=== PATIENT | female | born 1985 | race Caucasian/White ===

== ENCOUNTER 2016-12-06 11:52 | Emergency (ER) | payer OTHER ==
[~2016-12-06 11:52] MED LIST: BENADRYL25 MG PO; BUPROPION XL300 MG PO; BUSPAR5 MG PO; COLACE100 MG PO; GEODON40 MG PO; OMEPRAZOLE40 M1 PO; PRILOSEC40 MG PO; RANITIDINE HCL150 MG PO; TOPIRAMATE100 MG PO; TOPIRAMATE200 MG PO; WELLBUTRIN SR150 MG PO; ZIPRASIDONE HCL40 MG PO
[2016-12-06 12:17] LABS: EOSINOPHIL COUNT 0.1 K/uL (0-0.3); HEMATOCRIT 43.6 % (36.0-46.0); IMMATURE GRANULOCYTE (%) 0.5 % (0.0-0.7); INSTRUMENT ABS NEUTROPHIL CT 3.3 K/uL; LYMPHOCYTE COUNT 2.6 K/uL (1.0-2.8); MCH 31.9 PG (29.0-34.0); MCHC 31.7 G/DL (30.0-36.0); MCV 100.9 FL (83-99); MEAN PLAT.VOLUME 10.7 uM^3 (9.5-12.4); MONOCYTE (%) 6.4 % (3-12); MONOCYTE COUNT 0.4 K/uL (0-0.8); NEUTROPHIL (%) 50.1 % (45-76); NEUTROPHIL COUNT 3.3 K/uL (1.8-6.4); PLATELET COUNT 257 K/uL (156-360); RBC DIS.WIDTH-CV 12.3 % (11.8-14.6); RBC DIS.WIDTH-SD 46.6 % (39-53); RED BLOOD COUNT 4.32 M/uL (3.80-5.20); WHITE BLOOD COUNT 6.5 K/uL (4.1-10.2)
[2016-12-06 12:31] LABS: AMYLASE 18 IU/L (1-118); CHLORIDE 109 mEq/L (99-109); SODIUM 141 mEq/L (136-147)
[2016-12-06 12:33] LABS: GLUCOSE 231 mg/dL (70-99)
[2016-12-06 12:34] LABS: ANION GAP 9 MEQ/L (2-14)
[2016-12-06 12:36] LABS: SERUM ETHYL ALCOHOL < 10 mg/dL
[2016-12-06 12:37] LABS: GFR ESTIMATE (CALCULATED) > 59 mL/min/
[2016-12-06 12:38] LABS: UREA NITROGEN (BUN) 8 mg/dL (9-23)
[2016-12-06 12:40] LABS: LIPASE 4 U/L (1.0-51.0)
[2016-12-06 12:46] LABS: QUANTITATIVE HCG < 4.0 MIU/ML
[2016-12-06 13:28] LABS: ADD MIUA? YES; BILIRUBIN NEGATIVE; BLOOD NEGATIVE; COLOR YELLOW ((YELLOW)); GLUCOSE (STRIP) NEGATIVE; KETONES NEGATIVE; LEUKOCYTES NEGATIVE; NITRITE NEGATIVE; PROTEIN (STRIP) NEGATIVE; SPECIFIC GRAVITY 1.018 (1.000-1.030); UROBILINOGEN 0.2 MG/DL (0.2-1.0)
[2016-12-06 13:41] LABS: COCAINE NEGATIVE (150 ng/mL); PHENCYCLIDINE NEGATIVE (25 ng/mL); THC CANNABINOIDS NEGATIVE (50 ng/mL)
[2016-12-06 13:42] LABS: AMPHETAMINE NEGATIVE (500 ng/mL); BARBITURATES NEGATIVE (200 ng/mL); BENZODIAZEPINES NEGATIVE (150 ng/mL); INTERNAL CONTROLS VALID? YES; METHADONE NEGATIVE (200 ng/mL); METHAMPHETAMINE NEGATIVE (500 ng/mL); OPIATES (MORPHINE) NEGATIVE (100 ng/mL); OXYCODONE NEGATIVE (100 ng/mL); PROPOXYPHENE NEGATIVE (300 ng/mL); TRICYCLIC ANTIDEPRESSANTS NEGATIVE (300 ng/mL)
[2016-12-06 14:12] LABS: RED BLOOD CELLS NONE SEEN /HPF (0-5)
[2016-12-06 14:13] LABS: BACTERIA 1+ /HPF; CASTS NONE SEEN /LPF; CRYSTALS PRESENT; EPITHELIAL CELLS RARE /HPF; MUCUS NONE SEEN /LPF; UCUL ADDED? NO; WHITE BLOOD CELLS 0-5 /HPF (0-5)
[2016-12-06 14:14] LABS: AMORPHOUS URATES CRYSTALS 2+; OTHER BUDDING YEAST 1+
== END 2016-12-06 14:48 | disposition home or self-care (01) ==
LOC: TRA 11:52
PROVIDERS: Emergency Medicine
DX: T14.8 Other injury of unspecified body region (principal); V49.40XA Driver injured in collision with unspecified motor vehicles in traffic accident, initial encounter; F11.10 Opioid abuse, uncomplicated
CPT/HCPCS: 70450; 71260; 72125; 72129; 72132; 74177; 80048; 81003; 82150; 83690; 84702; 85025; 86900; 86901; 99281; 99285; G0480

== ENCOUNTER 2016-12-08 07:37 | Inpatient (IN) | payer OTHER ==
[~2016-12-08] VITALS: Ht 162.6 cm; Wt 65.8 kg
[2016-12-08] VITALS (10 sets, daily range): BP systolic 96–125; BP diastolic 59–83
[2016-12-08 07:48] LABS: BASE EXCESS -13.1 mEq/L (-3 to +3); BICARBONATE 16.2 mEq/L (22-26); CARBOXY HGB 0.9 % (0-5); METHEMOGLOBIN 0.7 % (0-1.5); PCO2 51 mm Hg (35-45); PO2 319 mm Hg (80-100)
[2016-12-08 07:49] LABS: COMMENTS - BLOOD GASES A+C+; DEVICE NRBM; FI02 100 %; O2 FLOW 15 L/MIN; SITE RR; pH 7.11 (7.35-7.45)
[2016-12-08 08:03] LABS: HEMATOCRIT 38.2 % (36.0-46.0); MCHC 30.9 G/DL (30.0-36.0); MCV 103.5 FL (83-99); MEAN PLAT.VOLUME 10.8 uM^3 (9.5-12.4); PLATELET COUNT 257 K/uL (156-360); RBC DIS.WIDTH-CV 12.3 % (11.8-14.6); RBC DIS.WIDTH-SD 47.1 % (39-53); RED BLOOD COUNT 3.69 M/uL (3.80-5.20); WHITE BLOOD COUNT 10.2 K/uL (4.1-10.2)
[2016-12-08 08:15] LABS: ADD MIUA? YES; BILIRUBIN NEGATIVE; BLOOD NEGATIVE; COLOR YELLOW ((YELLOW)); GLUCOSE (STRIP) >=500; KETONES NEGATIVE; LEUKOCYTES NEGATIVE; NITRITE NEGATIVE; PROTEIN (STRIP) 100; SPECIFIC GRAVITY 1.008 (1.000-1.030); UROBILINOGEN 0.2 MG/DL (0.2-1.0)
[2016-12-08 08:16] LABS: CHLORIDE 105 mEq/L (99-109); SODIUM 138 mEq/L (136-147)
[2016-12-08 08:17] LABS: POTASSIUM 2.9 mEq/L (3.7-5.4)
[2016-12-08 08:20] LABS: ANION GAP 17 MEQ/L (2-14); TOTAL BILIRUBIN 0.3 mg/dL (0.0-1.0)
[2016-12-08 08:22] LABS: BACTERIA 1+ /HPF; EPITHELIAL CELLS RARE /HPF; HYALINE CASTS 0-5 /LPF; MUCUS 1+ /LPF; UCUL ADDED? NO
[2016-12-08 08:22] LABS: ALKALINE PHOSPHATASE 105 IU/L (3-129); GFR ESTIMATE (CALCULATED) 55 mL/min/
[2016-12-08 08:23] LABS: UREA NITROGEN (BUN) 9 mg/dL (9-23)
[2016-12-08 08:24] LABS: GLUCOSE 394 mg/dL (70-99)
[2016-12-08 08:25] LABS: ADD MEDTOX COMMENT Y; AMPHETAMINE NEGATIVE (500 ng/mL); BARBITURATES NEGATIVE (200 ng/mL); BENZODIAZEPINES NEGATIVE (150 ng/mL); COCAINE NEGATIVE (150 ng/mL); INTERNAL CONTROLS VALID? YES; METHADONE NEGATIVE (200 ng/mL); METHAMPHETAMINE NEGATIVE (500 ng/mL); OPIATES (MORPHINE) PRESUMPTIVE POSITIVE (100 ng/mL); OXYCODONE NEGATIVE (100 ng/mL); PHENCYCLIDINE NEGATIVE (25 ng/mL); PROPOXYPHENE NEGATIVE (300 ng/mL); THC CANNABINOIDS NEGATIVE (50 ng/mL); TRICYCLIC ANTIDEPRESSANTS NEGATIVE (300 ng/mL)
[2016-12-08] MEDS ORDERED: OMEPRAZOLE40 M1 PO (15:10)
[2016-12-08] MEDS ORDERED: ZANTAC150 MG PO (15:10)
[2016-12-08] MEDS ORDERED: TOPAMAX50 MG PO (15:10)
[2016-12-08] MEDS ORDERED: LITHOBID300 MG PO (15:11)
[2016-12-08] MEDS ORDERED: LATUDA60 MG PO (15:14)
[2016-12-08] MEDS ORDERED: REVIA50 MG PO (15:15)
[2016-12-08 17:57] LABS: BASE EXCESS -3.5 mEq/L (-3 to +3); BICARBONATE 20.3 mEq/L (22-26); CARBOXY HGB 1.1 % (0-5); COMMENTS - BLOOD GASES C+ANA; DEVICE 980 PB; METHEMOGLOBIN 1.3 % (0-1.5); PCO2 32 mm Hg (35-45); PO2 122 mm Hg (80-100); SITE ALINE; pH 7.41 (7.35-7.45)
[2016-12-08 17:58] LABS: FI02 30 %; MECHANICAL RATE 14 resp/min; MODE AC; PEEP 5 CM/H20; TIDAL VOLUME 450 ML; TOTAL RESP RATE 14 resp/min
[2016-12-08 21:22] LABS: QUANTITATIVE HCG < 4.0 MIU/ML
[2016-12-08 21:57] LABS: ALKALINE PHOSPHATASE 91 IU/L (3-129); ANION GAP 9 MEQ/L (2-14); CHLORIDE 137 MEQ/L (99-109); SAMPLE HEMOLYSIS CHECK 0; SAMPLE ICTERIC CHECK 0; SAMPLE LIPEMIA CHECK 0; TOTAL BILIRUBIN 0.3 MG/DL (0.0-1.0); UREA NITROGEN (BUN) 6 mg/dL (9-23)
[2016-12-08 21:58] LABS: GFR ESTIMATE (CALCULATED) > 59 mL/min/; GLUCOSE 119 mg/dL (70-99); SODIUM 165 MEQ/L (136-147)
[2016-12-08 21:59] LABS: POTASSIUM 3.6 MEQ/L (3.7-5.4)
[2016-12-08 23:50] LABS: METH RESISTANT S AUREUS PCR NEGATIVE (NEGATIVE)
[2016-12-08 23:54] LABS: PROBE CHECK PASS; SPECIMEN PROCESSING CONTROL PASS
[2016-12-09] VITALS (15 sets, daily range): BP systolic 82–109; BP diastolic 43–78
[2016-12-09 00:20] LABS: BASE EXCESS -3.7 mEq/L (-3 to +3); BICARBONATE 20.4 mEq/L (22-26); CARBOXY HGB 1.1 % (0-5); COMMENTS - BLOOD GASES C+; DEVICE VENT; FI02 30 %; MECHANICAL RATE 12 resp/min; METHEMOGLOBIN 1.5 % (0-1.5); MODE AC; PCO2 33 mm Hg (35-45); PEEP 5 CM/H20; PO2 159 mm Hg (80-100); SITE A-LINE; TIDAL VOLUME 450 ML; TOTAL RESP RATE 12 resp/min
[2016-12-09 01:30] LABS: EOSINOPHIL (%) 0 % (0-5); HEMATOCRIT 37.1 % (36.0-46.0); IMMATURE GRANULOCYTE (%) 0.6 % (0.0-0.7); IMMATURE GRANULOCYTE COUNT 0.1 K/uL; INSTRUMENT ABS NEUTROPHIL CT 9.4 K/uL; LYMPHOCYTE COUNT 0.8 K/uL (1.0-2.8); MCH 31.4 PG (29.0-34.0); MCHC 31.8 G/DL (30.0-36.0); MCV 98.7 FL (83-99); MEAN PLAT.VOLUME 10.5 uM^3 (9.5-12.4); MONOCYTE COUNT 0.8 K/uL (0-0.8); NEUTROPHIL (%) 85.3 % (45-76); NEUTROPHIL COUNT 9.4 K/uL (1.8-6.4); PLATELET COUNT 226 K/uL (156-360); RBC DIS.WIDTH-CV 12.5 % (11.8-14.6); RBC DIS.WIDTH-SD 45.1 % (39-53); RED BLOOD COUNT 3.76 M/uL (3.80-5.20)
[2016-12-09 01:44] LABS: POTASSIUM 3.2 mEq/L (3.7-5.4); SODIUM 160 mEq/L (136-147)
[2016-12-09 01:46] LABS: GLUCOSE 144 mg/dL (70-99)
[2016-12-09 01:47] LABS: CHLORIDE 136 mEq/L (99-109)
[2016-12-09 01:48] LABS: ANION GAP 4 MEQ/L (2-14)
[2016-12-09 01:50] LABS: GFR ESTIMATE (CALCULATED) > 59 mL/min/
[2016-12-09 01:51] LABS: UREA NITROGEN (BUN) 7 mg/dL (9-23)
[2016-12-09 01:59] LABS: TROP-I INTERPRETATION INDETERMINATE; TROPONIN-I 0.32 ng/mL (0.0-0.30)
[2016-12-09 02:48] LABS: CHLORIDE 136 mEq/L (99-109); POTASSIUM 3.1 mEq/L (3.7-5.4); SODIUM 159 mEq/L (136-147)
[2016-12-09 02:50] LABS: GLUCOSE 192 mg/dL (70-99)
[2016-12-09 02:51] LABS: ANION GAP 4 MEQ/L (2-14)
[2016-12-09 02:54] LABS: GFR ESTIMATE (CALCULATED) > 59 mL/min/
[2016-12-09 02:55] LABS: UREA NITROGEN (BUN) 8 mg/dL (9-23)
[2016-12-09 03:49] LABS: CHLORIDE 134 mEq/L (99-109)
[2016-12-09 03:50] LABS: POTASSIUM 3.1 mEq/L (3.7-5.4); SODIUM 158 mEq/L (136-147)
[2016-12-09 03:51] LABS: GLUCOSE 241 mg/dL (70-99)
[2016-12-09 03:53] LABS: ANION GAP 5 MEQ/L (2-14)
[2016-12-09 03:55] LABS: GFR ESTIMATE (CALCULATED) > 59 mL/min/
[2016-12-09 03:56] LABS: UREA NITROGEN (BUN) 8 mg/dL (9-23)
[2016-12-09 05:39] LABS: EOSINOPHIL (%) 0 % (0-5); HEMATOCRIT 35.3 % (36.0-46.0); IMMATURE GRANULOCYTE (%) 0.5 % (0.0-0.7); IMMATURE GRANULOCYTE COUNT 0.1 K/uL; INSTRUMENT ABS NEUTROPHIL CT 9.3 K/uL; LYMPHOCYTE COUNT 0.6 K/uL (1.0-2.8); MCH 31.8 PG (29.0-34.0); MCV 99.4 FL (83-99); MEAN PLAT.VOLUME 10.9 uM^3 (9.5-12.4); MONOCYTE (%) 3.6 % (3-12); MONOCYTE COUNT 0.4 K/uL (0-0.8); NEUTROPHIL (%) 90.2 % (45-76); NEUTROPHIL COUNT 9.3 K/uL (1.8-6.4); PLATELET COUNT 221 K/uL (156-360); RBC DIS.WIDTH-CV 12.4 % (11.8-14.6); RBC DIS.WIDTH-SD 45.3 % (39-53); RED BLOOD COUNT 3.55 M/uL (3.80-5.20); WHITE BLOOD COUNT 10.3 K/uL (4.1-10.2)
[2016-12-09 05:39] LABS: BASE EXCESS -4.9 mEq/L (-3 to +3); BICARBONATE 19.7 mEq/L (22-26); COMMENTS - BLOOD GASES C+; DEVICE VENTILATOR; FI02 30 %; MECHANICAL RATE 12 resp/min; METHEMOGLOBIN 0.5 % (0-1.5); MODE A/C; PCO2 34 mm Hg (35-45); PO2 161 mm Hg (80-100); TIDAL VOLUME 450 ML; TOTAL RESP RATE 12 resp/min; pH 7.37 (7.35-7.45)
[2016-12-09 05:40] LABS: PEEP 5 CM/H20
[2016-12-09 05:50] LABS: TROP-I INTERPRETATION NEGATIVE; TROPONIN-I 0.27 ng/mL (0.0-0.30)
[2016-12-09 06:24] LABS: ALKALINE PHOSPHATASE 78 IU/L (3-129); ANION GAP 4 MEQ/L (2-14); CHLORIDE 131 MEQ/L (99-109); GFR ESTIMATE (CALCULATED) > 59 mL/min/; GLUCOSE 289 mg/dL (70-99); MAGNESIUM 1.7 mg/dl (1.3-2.7); SAMPLE HEMOLYSIS CHECK 0; SAMPLE ICTERIC CHECK 0; SAMPLE LIPEMIA CHECK 0; SODIUM 157 MEQ/L (136-147); TOTAL BILIRUBIN 0.3 MG/DL (0.0-1.0); UREA NITROGEN (BUN) 7 mg/dL (9-23)
[2016-12-09 06:27] LABS: POTASSIUM 3.9 MEQ/L (3.7-5.4)
[2016-12-09 09:17] LABS: ANION GAP 8 MEQ/L (2-14); CHLORIDE 130 MEQ/L (99-109); MAGNESIUM 1.6 mg/dl (1.3-2.7); SAMPLE HEMOLYSIS CHECK 0; SAMPLE ICTERIC CHECK 0; SAMPLE LIPEMIA CHECK 0; SODIUM 157 MEQ/L (136-147)
[2016-12-09 09:22] LABS: GFR ESTIMATE (CALCULATED) > 59 mL/min/; GLUCOSE 214 mg/dL (70-99); UREA NITROGEN (BUN) 7 mg/dL (9-23)
[2016-12-09 09:26] LABS: POTASSIUM 3.1 MEQ/L (3.7-5.4)
[2016-12-09 12:29] LABS: EOSINOPHIL (%) 0.3 % (0-5); HEMATOCRIT 33.3 % (36.0-46.0); IMMATURE GRANULOCYTE (%) 0.4 % (0.0-0.7); IMMATURE GRANULOCYTE COUNT 0.1 K/uL; INSTRUMENT ABS NEUTROPHIL CT 10.1 K/uL; LYMPHOCYTE COUNT 1.1 K/uL (1.0-2.8); MCH 31.6 PG (29.0-34.0); MCHC 31.2 G/DL (30.0-36.0); MCV 101.2 FL (83-99); MEAN PLAT.VOLUME 10.6 uM^3 (9.5-12.4); MONOCYTE (%) 5.4 % (3-12); MONOCYTE COUNT 0.6 K/uL (0-0.8); NEUTROPHIL (%) 84.6 % (45-76); NEUTROPHIL COUNT 10.1 K/uL (1.8-6.4); PLATELET COUNT 223 K/uL (156-360); RBC DIS.WIDTH-CV 12.7 % (11.8-14.6); RBC DIS.WIDTH-SD 47.6 % (39-53); RED BLOOD COUNT 3.29 M/uL (3.80-5.20); WHITE BLOOD COUNT 11.9 K/uL (4.1-10.2)
[2016-12-09 12:42] LABS: BASE EXCESS -3.8 mEq/L (-3 to +3); BICARBONATE 22.2 mEq/L (22-26); CARBOXY HGB 1.3 % (0-5); PCO2 43 mm Hg (35-45); PO2 130 mm Hg (80-100); pH 7.32 (7.35-7.45)
[2016-12-09 12:43] LABS: COMMENTS - BLOOD GASES A+C+; DEVICE 980 PB; FI02 30 %; MECHANICAL RATE 15 resp/min; MODE AC; PEEP 5 CM/H20; SITE LR; TIDAL VOLUME 360 ML; TOTAL RESP RATE 15 resp/min
[2016-12-09 12:55] LABS: ANION GAP 5 MEQ/L (2-14); CHLORIDE 127 MEQ/L (99-109); GFR ESTIMATE (CALCULATED) > 59 mL/min/; GLUCOSE 150 mg/dL (70-99); MAGNESIUM 1.5 mg/dl (1.3-2.7); POTASSIUM 2.9 MEQ/L (3.7-5.4); SAMPLE HEMOLYSIS CHECK 0; SAMPLE ICTERIC CHECK 0; SAMPLE LIPEMIA CHECK 0; SODIUM 156 MEQ/L (136-147); UREA NITROGEN (BUN) 7 mg/dL (9-23)
[2016-12-09 13:03] LABS: TROP-I INTERPRETATION NEGATIVE
[2016-12-09 13:46] LABS: POINT-OF-CARE METER ID UU13113731
[2016-12-09 18:02] LABS: EOSINOPHIL (%) 0.9 % (0-5); EOSINOPHIL COUNT 0.1 K/uL (0-0.3); HEMATOCRIT 28.2 % (36.0-46.0); IMMATURE GRANULOCYTE (%) 0.2 % (0.0-0.7); INSTRUMENT ABS NEUTROPHIL CT 6.9 K/uL; LYMPHOCYTE COUNT 1.2 K/uL (1.0-2.8); MCHC 31.6 G/DL (30.0-36.0); MCV 101.4 FL (83-99); MEAN PLAT.VOLUME 11.1 uM^3 (9.5-12.4); MONOCYTE (%) 3.3 % (3-12); MONOCYTE COUNT 0.3 K/uL (0-0.8); NEUTROPHIL (%) 81.3 % (45-76); NEUTROPHIL COUNT 6.9 K/uL (1.8-6.4); PLATELET COUNT 200 K/uL (156-360); RBC DIS.WIDTH-SD 48.6 % (39-53); RED BLOOD COUNT 2.78 M/uL (3.80-5.20); WHITE BLOOD COUNT 8.5 K/uL (4.1-10.2)
[2016-12-09 18:22] LABS: TROP-I INTERPRETATION NEGATIVE; TROPONIN-I 0.12 ng/mL (0.0-0.30)
[2016-12-09 19:17] LABS: ANION GAP 9 MEQ/L (2-14); CHLORIDE 124 MEQ/L (99-109); GFR ESTIMATE (CALCULATED) > 59 mL/min/; GLUCOSE 118 mg/dL (70-99); SAMPLE HEMOLYSIS CHECK 0; SAMPLE ICTERIC CHECK 0; SAMPLE LIPEMIA CHECK 0; SODIUM 152 MEQ/L (136-147); UREA NITROGEN (BUN) 7 mg/dL (9-23)
[2016-12-09 19:20] LABS: MAGNESIUM 1.2 mg/dl (1.3-2.7); POTASSIUM 3.9 MEQ/L (3.7-5.4)
[2016-12-09 19:38] LABS: BASE EXCESS -2.9 mEq/L (-3 to +3); BICARBONATE 22.7 mEq/L (22-26); CARBOXY HGB 1.9 % (0-5); METHEMOGLOBIN 1.4 % (0-1.5); PCO2 42 mm Hg (35-45); pH 7.34 (7.35-7.45)
[2016-12-09 19:39] LABS: COMMENTS - BLOOD GASES C+; DEVICE 840; FI02 30 %; MECHANICAL RATE 15 resp/min; MODE AC; PEEP 5 CM/H20; PO2 69 mm Hg (80-100); SITE RT PEDAL; TIDAL VOLUME 360 ML; TOTAL RESP RATE 15 resp/min
[2016-12-10] VITALS (8 sets, daily range): BP systolic 104–139; BP diastolic 65–101
[2016-12-10 00:02] LABS: HEMATOCRIT 29.4 % (36.0-46.0); MCH 31.5 PG (29.0-34.0); MCV 101.7 FL (83-99); MEAN PLAT.VOLUME 10.3 uM^3 (9.5-12.4); PLATELET COUNT 181 K/uL (156-360); RBC DIS.WIDTH-CV 13.2 % (11.8-14.6); RBC DIS.WIDTH-SD 49.8 % (39-53); RED BLOOD COUNT 2.89 M/uL (3.80-5.20); WHITE BLOOD COUNT 8.5 K/uL (4.1-10.2)
[2016-12-10 00:20] LABS: CHLORIDE 129 mEq/L (99-109); POTASSIUM 3.7 mEq/L (3.7-5.4); SODIUM 154 mEq/L (136-147)
[2016-12-10 00:21] LABS: MAGNESIUM 1.9 mg/dL (1.3-2.7)
[2016-12-10 00:23] LABS: GLUCOSE 107 mg/dL (70-99)
[2016-12-10 00:24] LABS: ANION GAP 4 MEQ/L (2-14)
[2016-12-10 00:26] LABS: GFR ESTIMATE (CALCULATED) > 59 mL/min/
[2016-12-10 00:27] LABS: UREA NITROGEN (BUN) 5 mg/dL (9-23)
[2016-12-10 00:32] LABS: TROP-I INTERPRETATION NEGATIVE
[2016-12-10 00:57] LABS: EOSINOPHIL (%) 0.8 % (0-5); EOSINOPHIL COUNT 0.1 K/uL (0-0.3); IMMATURE GRANULOCYTE (%) 0.4 % (0.0-0.7); LYMPHOCYTE COUNT 1.1 K/uL (1.0-2.8); MONOCYTE (%) 2.9 % (3-12); MONOCYTE COUNT 0.3 K/uL (0-0.8); NEUTROPHIL (%) 82.7 % (45-76)
[2016-12-10 05:01] LABS: BASE EXCESS -5.2 mEq/L (-3 to +3); BICARBONATE 21.6 mEq/L (22-26); CARBOXY HGB 1.1 % (0-5); METHEMOGLOBIN 1.4 % (0-1.5); PO2 73 mm Hg (80-100)
[2016-12-10 05:02] LABS: COMMENTS - BLOOD GASES C+; DEVICE 980; FI02 70 %; MECHANICAL RATE 15 resp/min; MODE AC; PCO2 47 mm Hg (35-45); PEEP 10 CM/H20; SITE A-LINE; TIDAL VOLUME 360 ML; TOTAL RESP RATE 15 resp/min; pH 7.27 (7.35-7.45)
[2016-12-10 05:32] LABS: HEMATOCRIT 30.9 % (36.0-46.0); MCH 32.7 PG (29.0-34.0); MCHC 31.4 G/DL (30.0-36.0); MEAN PLAT.VOLUME 11.2 uM^3 (9.5-12.4); PLATELET COUNT 196 K/uL (156-360); RBC DIS.WIDTH-CV 13.4 % (11.8-14.6); RBC DIS.WIDTH-SD 51.5 % (39-53); RED BLOOD COUNT 2.97 M/uL (3.80-5.20)
[2016-12-10 05:48] LABS: TROP-I INTERPRETATION NEGATIVE; TROPONIN-I 0.12 ng/mL (0.0-0.30)
[2016-12-10 05:59] LABS: ANION GAP 4 MEQ/L (2-14); CHLORIDE 128 MEQ/L (99-109); GFR ESTIMATE (CALCULATED) > 59 mL/min/; GLUCOSE 158 mg/dL (70-99); POTASSIUM 3.5 MEQ/L (3.7-5.4); SAMPLE HEMOLYSIS CHECK 0; SAMPLE ICTERIC CHECK 0; SAMPLE LIPEMIA CHECK 0; SODIUM 153 MEQ/L (136-147); UREA NITROGEN (BUN) 6 mg/dL (9-23)
[2016-12-10 06:04] LABS: MAGNESIUM 1.8 mg/dl (1.3-2.7)
[2016-12-10 06:13] LABS: EOSINOPHIL (%) 0.4 % (0-5); HEMATOLOGY COMMENT 1 SN; IMMATURE GRANULOCYTE (%) 0.3 % (0.0-0.7); LYMPHOCYTE COUNT 0.4 K/uL (1.0-2.8); MONOCYTE (%) 4.6 % (3-12); MONOCYTE COUNT 0.5 K/uL (0-0.8); NEUTROPHIL (%) 90.8 % (45-76)
[2016-12-10 17:38] LABS: BASE EXCESS -4.7 mEq/L (-3 to +3); BICARBONATE 20.4 mEq/L (22-26); CARBOXY HGB 1.2 % (0-5); METHEMOGLOBIN 1.5 % (0-1.5); pH 7.35 (7.35-7.45)
[2016-12-10 17:39] LABS: COMMENTS - BLOOD GASES C+ANA; DEVICE 980 PB; FI02 50 %; MECHANICAL RATE 18 resp/min; MODE AC; PCO2 37 mm Hg (35-45); PEEP 8 CM/H20; PO2 110 mm Hg (80-100); SITE ALINE; TIDAL VOLUME 360 ML; TOTAL RESP RATE 18 resp/min
[2016-12-10 19:30] LABS: ALKALINE PHOSPHATASE 63 IU/L (3-129); ANION GAP 4 MEQ/L (2-14); CHLORIDE 129 MEQ/L (99-109); GFR ESTIMATE (CALCULATED) > 59 mL/min/; GLUCOSE 200 mg/dL (70-99); MAGNESIUM 1.6 mg/dl (1.3-2.7); POTASSIUM 3.5 MEQ/L (3.7-5.4); SAMPLE HEMOLYSIS CHECK 0; SAMPLE ICTERIC CHECK 0; SAMPLE LIPEMIA CHECK 0; SODIUM 153 MEQ/L (136-147); UREA NITROGEN (BUN) 9 mg/dL (9-23)
[2016-12-10 19:32] LABS: TOTAL BILIRUBIN 0.2 MG/DL (0.0-1.0)
[2016-12-10 19:39] LABS: AMPHETAMINES QUANT VALUE 0 NG/ML; BARBITUATES QUANT VALUE 0 NG/ML; BENZODIAZEPINES QUANT VALUE 0 NG/ML; BENZODIAZEPINES, URINE SCREEN Negative (200 ng/mL); MARIJUANA QUANT VALUE 0 NG/ML; OPIATES QUANTITATIVE VALUE 0 NG/ML; PHENCYCLIDINE QUANT VALUE 0 NG/ML
[2016-12-10 21:12] LABS: BASE EXCESS -4.1 mEq/L (-3 to +3); BICARBONATE 20.9 mEq/L (22-26); CARBOXY HGB 0.9 % (0-5); COMMENTS - BLOOD GASES C+; DEVICE 840; FI02 100 %; MECHANICAL RATE 18 resp/min; METHEMOGLOBIN 1.5 % (0-1.5); MODE AC; PCO2 37 mm Hg (35-45); PEEP 8 CM/H20; PO2 184 mm Hg (80-100); SITE A-LINE; TIDAL VOLUME 360 ML; TOTAL RESP RATE 18 resp/min; pH 7.36 (7.35-7.45)
[2016-12-10 21:31] LABS: BASE EXCESS -6.5 mEq/L (-3 to +3); BICARBONATE 22.8 mEq/L (22-26); CARBOXY HGB 1.2 % (0-5); METHEMOGLOBIN 1.5 % (0-1.5)
[2016-12-10 21:32] LABS: DEVICE VIA ETTUBE; O2 FLOW 8 L/MIN; PCO2 67 mm Hg (35-45); PO2 129 mm Hg (80-100); SITE ALINE; pH 7.14 (7.35-7.45)
[2016-12-10 21:33] LABS: TOTAL RESP RATE 0 resp/min
[2016-12-10 22:22] LABS: POINT-OF-CARE METER ID UU14174217
[2016-12-10 23:38] LABS: ADD MIUA? YES; BILIRUBIN NEGATIVE; BLOOD NEGATIVE; COLOR YELLOW ((YELLOW)); GLUCOSE (STRIP) 50; KETONES NEGATIVE; LEUKOCYTES TRACE; NITRITE NEGATIVE; PROTEIN (STRIP) NEGATIVE; SPECIFIC GRAVITY 1.016 (1.000-1.030); UROBILINOGEN 0.2 MG/DL (0.2-1.0)
[2016-12-10 23:58] LABS: BACTERIA 1+ /HPF; EPITHELIAL CELLS RARE /HPF; HYALINE CASTS 0-5 /LPF; MUCUS 1+ /LPF; RED BLOOD CELLS 0-5 /HPF (0-5); UCUL ADDED? NO; WHITE BLOOD CELLS 20-30 /HPF (0-5)
[2016-12-11] VITALS (11 sets, daily range): BP systolic 97–179; BP diastolic 61–102
[2016-12-11 00:01] LABS: CHLORIDE 129 mEq/L (99-109); POTASSIUM 3.7 mEq/L (3.7-5.4); SODIUM 155 mEq/L (136-147)
[2016-12-11 00:03] LABS: GLUCOSE 186 mg/dL (70-99)
[2016-12-11 00:04] LABS: ANION GAP 6 MEQ/L (2-14)
[2016-12-11 00:07] LABS: GFR ESTIMATE (CALCULATED) > 59 mL/min/
[2016-12-11 00:08] LABS: UREA NITROGEN (BUN) 10 mg/dL (9-23)
[2016-12-11 00:10] LABS: ALKALINE PHOSPHATASE 74 IU/L (3-129); TOTAL BILIRUBIN 0.2 mg/dL (0.0-1.0)
[2016-12-11 00:13] LABS: BASE EXCESS -3.3 mEq/L (-3 to +3); BICARBONATE 22.1 mEq/L (22-26); CARBOXY HGB 0.7 % (0-5); METHEMOGLOBIN 1.4 % (0-1.5)
[2016-12-11 00:14] LABS: COMMENTS - BLOOD GASES C+; DEVICE 980; FI02 100 %; MECHANICAL RATE 18 resp/min; MODE AC; PCO2 40 mm Hg (35-45); PEEP 8 CM/H20; PO2 336 mm Hg (80-100); SITE A-LINE; TIDAL VOLUME 360 ML; TOTAL RESP RATE 18 resp/min; pH 7.35 (7.35-7.45)
[2016-12-11 01:11] LABS: INTER. NORMALIZED RATIO 1.4; PROTHROMBIN TIME 14.5 (9.2-11.2); PTT 35.6 (25-32)
[2016-12-11 01:21] LABS: MCH 31.3 PG (29.0-34.0); MCV 104.3 FL (83-99); MEAN PLAT.VOLUME 11.8 uM^3 (9.5-12.4); PLATELET COUNT 161 K/uL (156-360); RBC DIS.WIDTH-CV 13.5 % (11.8-14.6); RED BLOOD COUNT 2.78 M/uL (3.80-5.20); WHITE BLOOD COUNT 13.4 K/uL (4.1-10.2)
[2016-12-11 01:28] LABS: TROP-I INTERPRETATION NEGATIVE; TROPONIN-I 0.07 ng/mL (0.0-0.30)
[2016-12-11 02:11] LABS: POINT-OF-CARE METER ID UU13113731
[2016-12-11 02:45] LABS: MAGNESIUM 2.4 mg/dL (1.3-2.7)
[2016-12-11 02:48] LABS: CREATINE KINASE 66 IU/L (1-294); TOTAL CK 66 IU/L (1-294)
[2016-12-11 02:54] LABS: CK-MB 2.9 ng/mL (0.0-4.9)
[2016-12-11 02:55] LABS: SEG.NEUTROPHILS 89.6 % (46.0-76.0)
[2016-12-11 02:56] LABS: ABS NEUTROPHIL COUNT 12.8; BAND NEUTROPHILS 6.1 % (0-8.0); EOSINOPHIL ABS CT 0; INSTRUMENT ABS NEUTROPHIL CT 12.1 K/uL; LYMPHOCYTES 1.7 % (15.0-45.0)
[2016-12-11 05:48] LABS: CHLORIDE 128 mEq/L (99-109); POTASSIUM 3.7 mEq/L (3.7-5.4); SODIUM 151 mEq/L (136-147)
[2016-12-11 05:50] LABS: GLUCOSE 137 mg/dL (70-99)
[2016-12-11 05:51] LABS: ANION GAP 5 MEQ/L (2-14)
[2016-12-11 05:53] LABS: HEMATOCRIT 34.8 % (36.0-46.0); MCH 31.5 PG (29.0-34.0); MCHC 30.7 G/DL (30.0-36.0); MCV 102.4 FL (83-99); NRBC (%) 0.5 /100 WBC (0-0); RBC DIS.WIDTH-CV 13.3 % (11.8-14.6); RBC DIS.WIDTH-SD 50.1 % (39-53); WHITE BLOOD COUNT 4.2 K/uL (4.1-10.2)
[2016-12-11 05:54] LABS: GFR ESTIMATE (CALCULATED) > 59 mL/min/
[2016-12-11 05:55] LABS: UREA NITROGEN (BUN) 12 mg/dL (9-23)
[2016-12-11 05:56] LABS: INTER. NORMALIZED RATIO 1.5; PROTHROMBIN TIME 15.9 (9.2-11.2); TROP-I INTERPRETATION NEGATIVE; TROPONIN-I 0.04 ng/mL (0.0-0.30)
[2016-12-11 05:57] LABS: CREATINE KINASE 39 IU/L (1-294); TOTAL CK 39 IU/L (1-294)
[2016-12-11 06:05] LABS: BASE EXCESS -4.2 mEq/L (-3 to +3); CARBOXY HGB 1.4 % (0-5); METHEMOGLOBIN 1.4 % (0-1.5); PCO2 38 mm Hg (35-45); pH 7.35 (7.35-7.45)
[2016-12-11 06:07] LABS: DEVICE 980; FI02 40 %; MECHANICAL RATE 10 resp/min; MODE BILEVEL - APRV; PO2 96 mm Hg (80-100); PRESSURE CONTROL VENTILATION 26 CM H20; SITE A-LINE; TOTAL RESP RATE 10 resp/min
[2016-12-11 06:08] LABS: CK-MB 1.4 ng/mL (0.0-4.9)
[2016-12-11 06:08] LABS: PEEP 0 CM/H20
[2016-12-11 06:15] LABS: ALKALINE PHOSPHATASE 169 IU/L (3-129); MAGNESIUM 1.9 mg/dL (1.3-2.7); TOTAL BILIRUBIN 0.5 mg/dL (0.0-1.0)
[2016-12-11 07:00] LABS: PTT 54.4 (25-32)
[2016-12-11 07:31] LABS: ABS NEUTROPHIL COUNT 4.1; ANISOCYTOSIS 1+; BAND NEUTROPHILS 16.5 % (0-8.0); BASOPHILS 0.9 %; BURR CELLS 2+; EOSINOPHIL ABS CT 0; INSTRUMENT ABS NEUTROPHIL CT 3.7 K/uL; LYMPHOCYTES 0.9 % (15.0-45.0); MACROCYTES 1+; MEAN PLAT.VOLUME 11.4 uM^3 (9.5-12.4); PLAT.SUFFICIENCY DECREASED; POIKILOCYTOSIS 3+; SEG.NEUTROPHILS 81.7 % (46.0-76.0); SPHEROCYTES 1+
[2016-12-11 07:40] LABS: PLATELET COUNT 103 K/uL (156-360)
[2016-12-11 10:05] LABS: POINT-OF-CARE METER ID UU13113731; POINT-OF-CARE USER ID AGYTJR
[2016-12-11 12:31] LABS: BASE EXCESS -3.5 mEq/L (-3 to +3); BICARBONATE 21.3 mEq/L (22-26); METHEMOGLOBIN 1.4 % (0-1.5); PCO2 36 mm Hg (35-45); pH 7.38 (7.35-7.45)
[2016-12-11 12:32] LABS: DEVICE VENT; FI02 40 %; MODE BILEVEL/APRV; PO2 138 mm Hg (80-100); SITE ALINE; TOTAL RESP RATE 10 resp/min
[2016-12-11 12:33] LABS: INSPIRATION TIME 0.5 seconds; PEEP 0 CM/H20; PRESSURE CONTROL VENTILATION 26 CM H20
[2016-12-11 13:29] LABS: INTER. NORMALIZED RATIO 1.4; PROTHROMBIN TIME 14.7 (9.2-11.2); PTT 56.4 (25-32)
[2016-12-11 13:33] LABS: CK-MB 0.8 ng/mL (0.0-4.9); TROP-I INTERPRETATION NEGATIVE; TROPONIN-I 0.05 ng/mL (0.0-0.30)
[2016-12-11 13:36] LABS: BICARBONATE 21.6 mEq/L (22-26); CARBOXY HGB 0.9 % (0-5); METHEMOGLOBIN 1.4 % (0-1.5); pH 7.33 (7.35-7.45)
[2016-12-11 13:37] LABS: DEVICE VENT; FI02 100 %; INSPIRATION TIME 0.5 seconds; MECHANICAL RATE 10 resp/min; MODE BILEVEL/APRV; PCO2 41 mm Hg (35-45); PEEP 0 CM/H20; PO2 432 mm Hg (80-100); PRESSURE CONTROL VENTILATION 26 CM H20; SITE ALINE; TOTAL RESP RATE 10 resp/min
[2016-12-11 13:51] LABS: POINT-OF-CARE METER ID UU13113731; POINT-OF-CARE USER ID AGYTJR
[2016-12-11 14:10] LABS: CHLORIDE 121 mEq/L (99-109); POTASSIUM 3.4 mEq/L (3.7-5.4); SODIUM 146 mEq/L (136-147)
[2016-12-11 14:12] LABS: GLUCOSE 182 mg/dL (70-99)
[2016-12-11 14:13] LABS: ANION GAP 7 MEQ/L (2-14)
[2016-12-11 14:14] LABS: MAGNESIUM 2.8 mg/dL (1.3-2.7); TOTAL BILIRUBIN 0.4 mg/dL (0.0-1.0)
[2016-12-11 14:16] LABS: ALKALINE PHOSPHATASE 157 IU/L (3-129); GFR ESTIMATE (CALCULATED) > 59 mL/min/
[2016-12-11 14:16] LABS: HEMATOCRIT 22.6 % (36.0-46.0); MCH 31.6 PG (29.0-34.0); MCHC 30.1 G/DL (30.0-36.0); MCV 105.1 FL (83-99); MEAN PLAT.VOLUME 11.5 uM^3 (9.5-12.4); PLATELET COUNT 123 K/uL (156-360); RBC DIS.WIDTH-CV 13.6 % (11.8-14.6); RBC DIS.WIDTH-SD 52.5 % (39-53); WHITE BLOOD COUNT 6.2 K/uL (4.1-10.2)
[2016-12-11 14:17] LABS: UREA NITROGEN (BUN) 14 mg/dL (9-23)
[2016-12-11 14:17] LABS: RED BLOOD COUNT 2.15 M/uL (3.80-5.20)
[2016-12-11 14:19] LABS: CREATINE KINASE 34 IU/L (1-294); TOTAL CK 34 IU/L (1-294)
[2016-12-11 14:32] LABS: ABS NEUTROPHIL COUNT 5.8; BAND NEUTROPHILS 18.4 % (0-8.0); EOSINOPHIL ABS CT 0; INSTRUMENT ABS NEUTROPHIL CT 5.3 K/uL; LYMPHOCYTES 5.3 % (15.0-45.0); METAMYELOCYTES 0.9 %; PLAT.SUFFICIENCY DECREASED; SEG.NEUTROPHILS 74.5 % (46.0-76.0); SMUDGE CELLS 0.9
[2016-12-11 14:45] LABS: BASE EXCESS -3.8 mEq/L (-3 to +3); BICARBONATE 21.6 mEq/L (22-26); CARBOXY HGB 1.2 % (0-5); PCO2 40 mm Hg (35-45); PO2 435 mm Hg (80-100); pH 7.34 (7.35-7.45)
[2016-12-11 14:46] LABS: FI02 100 %; SITE ALINE
[2016-12-11 14:47] LABS: DEVICE VENT; MECHANICAL RATE 10 resp/min; MODE ACPC; PEEP 5 CM/H20; PRESSURE CONTROL VENTILATION 18 CM H20; TOTAL RESP RATE 10 resp/min
[2016-12-11 17:16] LABS: LIPASE 9 U/L (1.0-51.0)
[2016-12-11 17:18] LABS: AMYLASE 53 IU/L (1-118)
[2016-12-11 18:28] LABS: POINT-OF-CARE METER ID UU13113731; POINT-OF-CARE USER ID AGYTJR
[2016-12-11 19:19] LABS: TROP-I INTERPRETATION NEGATIVE; TROPONIN-I 0.04 ng/mL (0.0-0.30)
[2016-12-11 19:53] LABS: HEMATOCRIT 22.5 % (36.0-46.0); MCH 31.8 PG (29.0-34.0); MCHC 30.2 G/DL (30.0-36.0); MCV 105.1 FL (83-99); MEAN PLAT.VOLUME 11.4 uM^3 (9.5-12.4); PLATELET COUNT 113 K/uL (156-360); RBC DIS.WIDTH-CV 13.5 % (11.8-14.6); RBC DIS.WIDTH-SD 52.3 % (39-53); RED BLOOD COUNT 2.14 M/uL (3.80-5.20); WHITE BLOOD COUNT 5.7 K/uL (4.1-10.2)
[2016-12-11 19:54] LABS: INTER. NORMALIZED RATIO 1.4; PTT 56.9 (25-32)
[2016-12-11 21:01] LABS: CHLORIDE 116 MEQ/L (99-109); GFR ESTIMATE (CALCULATED) > 59 mL/min/; GLUCOSE 210 mg/dL (70-99); POTASSIUM 4.1 MEQ/L (3.7-5.4); SODIUM 147 MEQ/L (136-147); UREA NITROGEN (BUN) 15 mg/dL (9-23)
[2016-12-11 21:02] LABS: ALKALINE PHOSPHATASE 120 IU/L (3-129); CREATINE KINASE 27 IU/L (1-294); TOTAL BILIRUBIN 0.4 MG/DL (0.0-1.0)
[2016-12-11 21:03] LABS: ANION GAP 6 MEQ/L (2-14); TOTAL CK 27 IU/L (1-294)
[2016-12-11 21:23] LABS: CK-MB 0.9 ng/mL (0.0-4.9)
[2016-12-11 22:11] LABS: AMYLASE 43 IU/L (1-118); LIPASE 9 U/L (1.0-51.0)
[2016-12-11 22:47] LABS: ABS NEUTROPHIL COUNT 5.4; ANISOCYTOSIS 1+; BAND NEUTROPHILS 16.7 % (0-8.0); EOSINOPHIL ABS CT 0; HEMATOLOGY COMMENT 1 SN; INSTRUMENT ABS NEUTROPHIL CT 4.8 K/uL; LYMPHOCYTES 6.1 % (15.0-45.0); OVALOCYTES 1+; PLAT.SUFFICIENCY DECREASED; SEG.NEUTROPHILS 77.2 % (46.0-76.0)
[2016-12-12 00:08] VITALS: BP 152/96
[2016-12-12 00:32] LABS: LIPASE 15 U/L (1.0-51.0)
[2016-12-12 00:33] LABS: TROP-I INTERPRETATION NEGATIVE; TROPONIN-I 0.03 ng/mL (0.0-0.30)
[2016-12-12 00:38] LABS: CK-MB 0.6 ng/mL (0.0-4.9)
[2016-12-12 00:42] LABS: AMYLASE 76 IU/L (1-118)
[2016-12-12 01:08] VITALS: BP 152/96
[2016-12-12 01:17] LABS: CREATINE KINASE 34 IU/L (1-294); TOTAL CK 34 IU/L (1-294)
[2016-12-12 01:21] LABS: INTER. NORMALIZED RATIO 1.3; PROTHROMBIN TIME 13.1 (9.2-11.2); PTT 43.2 (25-32)
[2016-12-12 01:28] LABS: CHLORIDE 117 mEq/L (99-109); SODIUM 148 mEq/L (136-147)
[2016-12-12 01:31] LABS: GLUCOSE 178 mg/dL (70-99)
[2016-12-12 01:32] LABS: ANION GAP 9 MEQ/L (2-14)
[2016-12-12 01:33] LABS: TOTAL BILIRUBIN 0.4 mg/dL (0.0-1.0)
[2016-12-12 01:34] LABS: ALKALINE PHOSPHATASE 122 IU/L (3-129)
[2016-12-12 01:35] LABS: GFR ESTIMATE (CALCULATED) > 59 mL/min/
[2016-12-12 01:36] LABS: UREA NITROGEN (BUN) 16 mg/dL (9-23)
[2016-12-12 01:37] LABS: MAGNESIUM 1.9 mg/dL (1.3-2.7); POTASSIUM 3.1 mEq/L (3.7-5.4)
[2016-12-12 01:38] LABS: CREATINE KINASE 36 IU/L (1-294)
[2016-12-12 02:11] VITALS: BP 159/94
[2016-12-12 02:15] LABS: BASE EXCESS 0.9 mEq/L (-3 to +3); CARBOXY HGB 1.5 % (0-5); COMMENTS - BLOOD GASES C+; DEVICE 980 VENT; FI02 40 %; MECHANICAL RATE 10 resp/min; METHEMOGLOBIN 1.1 % (0-1.5); MODE BILEVEL; PCO2 43 mm Hg (35-45); PO2 127 mm Hg (80-100); PRESSURE CONTROL VENTILATION 26 CM H20; SITE ALINE; TOTAL RESP RATE 10 resp/min; pH 7.39 (7.35-7.45)
[2016-12-12 02:16] LABS: PEEP 0 CM/H20; PRES. SUPPORT 0 CM/H2O
[2016-12-12 02:19] LABS: EOSINOPHIL (%) 0 % (0-5); HEMATOCRIT 25.6 % (36.0-46.0); HEMATOLOGY COMMENT 1 SMEAR COMPATIBLE; IMMATURE GRANULOCYTE (%) 3.4 % (0.0-0.7); IMMATURE GRANULOCYTE COUNT 0.2 K/uL; INSTRUMENT ABS NEUTROPHIL CT 6.1 K/uL; LYMPHOCYTE COUNT 0.3 K/uL (1.0-2.8); MCH 31.1 PG (29.0-34.0); MCHC 30.9 G/DL (30.0-36.0); MEAN PLAT.VOLUME 12.1 uM^3 (9.5-12.4); MONOCYTE (%) 3.2 % (3-12); MONOCYTE COUNT 0.2 K/uL (0-0.8); NEUTROPHIL (%) 89.3 % (45-76); NEUTROPHIL COUNT 6.1 K/uL (1.8-6.4); PLAT.SUFFICIENCY DECREASED; PLATELET COUNT 117 K/uL (156-360); RBC DIS.WIDTH-CV 14.8 % (11.8-14.6); RBC DIS.WIDTH-SD 55.4 % (39-53); RED BLOOD COUNT 2.54 M/uL (3.80-5.20); WHITE BLOOD COUNT 6.8 K/uL (4.1-10.2)
[2016-12-12 02:21] LABS: MCV 100.8 FL (83-99)
[2016-12-12 04:35] LABS: BASE EXCESS 2.9 mEq/L (-3 to +3); BICARBONATE 27.1 mEq/L (22-26); CARBOXY HGB 1.1 % (0-5); METHEMOGLOBIN 1.7 % (0-1.5); PCO2 39 mm Hg (35-45); PO2 107 mm Hg (80-100); pH 7.45 (7.35-7.45)
[2016-12-12 04:36] LABS: COMMENTS - BLOOD GASES C+; DEVICE 980 VENT; FI02 40 %; MECHANICAL RATE 10 resp/min; MODE BILEVEL; PEEP 0 CM/H20; PRES. SUPPORT 0 CM/H2O; SITE ALINE; TOTAL RESP RATE 10 resp/min
[2016-12-12 04:47] LABS: ADD MIUA? NO; BILIRUBIN NEGATIVE; BLOOD NEGATIVE; COLOR COLORLESS ((YELLOW)); GLUCOSE (STRIP) NEGATIVE; KETONES NEGATIVE; LEUKOCYTES NEGATIVE; NITRITE NEGATIVE; PROTEIN (STRIP) NEGATIVE; SPECIFIC GRAVITY 1.005 (1.000-1.030); UROBILINOGEN 0.2 MG/DL (0.2-1.0)
[2016-12-12 04:51] LABS: CHLORIDE 114 mEq/L (99-109); POTASSIUM 3.3 mEq/L (3.7-5.4); SODIUM 145 mEq/L (136-147)
[2016-12-12 04:52] LABS: MAGNESIUM 1.9 mg/dL (1.3-2.7)
[2016-12-12 04:53] LABS: AMYLASE 88 IU/L (1-118)
[2016-12-12 04:54] LABS: GLUCOSE 194 mg/dL (70-99)
[2016-12-12 04:55] LABS: ANION GAP 8 MEQ/L (2-14)
[2016-12-12 04:57] LABS: ALKALINE PHOSPHATASE 113 IU/L (3-129)
[2016-12-12 04:58] LABS: GFR ESTIMATE (CALCULATED) > 59 mL/min/; INTER. NORMALIZED RATIO 1.3; PROTHROMBIN TIME 13.2 (9.2-11.2); PTT 41.3 (25-32)
[2016-12-12 04:59] LABS: TOTAL BILIRUBIN 0.5 mg/dL (0.0-1.0); UREA NITROGEN (BUN) 17 mg/dL (9-23)
[2016-12-12 05:01] LABS: CREATINE KINASE 31 IU/L (1-294); LIPASE 19 U/L (1.0-51.0)
[2016-12-12 05:02] LABS: CREATINE KINASE 29 IU/L (1-294); TOTAL CK 29 IU/L (1-294); TROP-I INTERPRETATION NEGATIVE; TROPONIN-I 0.04 ng/mL (0.0-0.30)
[2016-12-12 05:07] LABS: CK-MB 0.5 ng/mL (0.0-4.9)
[2016-12-12 06:05] LABS: POINT-OF-CARE METER ID UU13113731
[2016-12-12 06:57] LABS: ABS NEUTROPHIL COUNT 5.8; ATYPICAL LYMPHOCYTE 0.9 %; BAND NEUTROPHILS 9.6 % (0-8.0); EOSINOPHIL ABS CT 0; HEMATOCRIT 27.9 % (36.0-46.0); INSTRUMENT ABS NEUTROPHIL CT 5.3 K/uL; LYMPHOCYTES 4.3 % (15.0-45.0); MCH 30.5 PG (29.0-34.0); MCHC 31.9 G/DL (30.0-36.0); MEAN PLAT.VOLUME 10.7 uM^3 (9.5-12.4); PLAT.SUFFICIENCY DECREASED; RBC DIS.WIDTH-CV 15.5 % (11.8-14.6); RBC DIS.WIDTH-SD 54.6 % (39-53); RED BLOOD COUNT 2.92 M/uL (3.80-5.20); SEG.NEUTROPHILS 81.7 % (46.0-76.0); WHITE BLOOD COUNT 6.3 K/uL (4.1-10.2)
[2016-12-12 07:07] LABS: Estimated Average Glucose 103 mg/dL (70-123); HEMOGLOBIN A1c (GLYCOHEMOGLOB) 5.2 % HGB (Below 5.7)
[2016-12-12 07:18] LABS: MCV 95.5 FL (83-99); PLATELET COUNT 79 K/uL (156-360)
[2016-12-12 07:50] LABS: POINT-OF-CARE METER ID UU14174217
[2016-12-12 09:24] LABS: BASE EXCESS 0.5 mEq/L (-3 to +3); BICARBONATE 22.6 mEq/L (22-26); CARBOXY HGB 0.9 % (0-5); METHEMOGLOBIN 1.2 % (0-1.5); pH 7.53 (7.35-7.45)
[2016-12-12 09:25] LABS: PCO2 27 mm Hg (35-45); PO2 229 mm Hg (80-100); SITE ALINE
== END 2016-12-12 08:00 | DRG 917 ==
LOC: EME 07:37 → 4WEST 09:01 → EDOF 09:01 → 4WEST 10:40
PROVIDERS: Emergency Medicine; Internal Medicine Critical Care Medicine; Internal Medicine Pulmonary Disease
PROC: 02H632Z Insertion of Monitoring Device into Right Atrium, Percutaneous Approach (ICD-10-PCS; principal; 2016-12-08)
PROC: 0W9B30Z Drainage of Left Pleural Cavity with Drainage Device, Percutaneous Approach (ICD-10-PCS; principal; 2016-12-08)
PROC: 5A1945Z Respiratory Ventilation, 24-96 Consecutive Hours (ICD-10-PCS; principal; 2016-12-08)
PROC: 02HV33Z Insertion of Infusion Device into Superior Vena Cava, Percutaneous Approach (ICD-10-PCS; principal; 2016-12-08)
PROC: 05HM33Z Insertion of Infusion Device into Right Internal Jugular Vein, Percutaneous Approach (ICD-10-PCS; principal; 2016-12-08)
PROC: 0W9B30Z Drainage of Left Pleural Cavity with Drainage Device, Percutaneous Approach (ICD-10-PCS; 2016-12-10)
PROC: 0BJ08ZZ Inspection of Tracheobronchial Tree, Via Natural or Artificial Opening Endoscopic (ICD-10-PCS; 2016-12-11)
PROC: 30233N1 Transfusion of Nonautologous Red Blood Cells into Peripheral Vein, Percutaneous Approach (ICD-10-PCS; 2016-12-11)
DX: T40.2X1A Poisoning by other opioids, accidental (unintentional), initial encounter (principal); Y92.008 Other place in unspecified non-institutional (private) residence as the place of occurrence of the external cause; I46.8 Cardiac arrest due to other underlying condition; J95.811 Postprocedural pneumothorax; Y84.8 Other medical procedures as the cause of abnormal reaction of the patient, or of later complication, without mention of misadventure at the time of the procedure; Z52.9 Donor of unspecified organ or tissue; G93.5 Compression of brain; G93.6 Cerebral edema; G93.1 Anoxic brain damage, not elsewhere classified; J81.1 Chronic pulmonary edema; E23.2 Diabetes insipidus; I47.1 Supraventricular tachycardia; E83.51 Hypocalcemia; Z66 Do not resuscitate; Z51.5 Encounter for palliative care; F11.20 Opioid dependence, uncomplicated; G40.909 Epilepsy, unspecified, not intractable, without status epilepticus; F32.9 Major depressive disorder, single episode, unspecified; F41.9 Anxiety disorder, unspecified; K21.9 Gastro-esophageal reflux disease without esophagitis; G43.909 Migraine, unspecified, not intractable, without status migrainosus; R09.02 Hypoxemia
CPT/HCPCS: 36600; 70450; 71010; 71250; 71260; 72125; 72129; 72132; 74177; 80048; 80048 91; 80053; 80074; 80076; 80306 90; 81003; 82150; 82330; 82550; 82550 91; 82553; 82803; 82948; 83036; 83605; 83690; 83735; 83930; 83935; 84100; 84484; 84702; 84999; 85025; 85025 91; 85027; 85610; 85730; 86900; 86901; 86920; 87040; 87070; 87077; 87086; 87102; 87116; 87147; 87186; 87205; 87206; 87641; 93005; 93306; 94002; 94003; 94667; 94668; 95819; 99281; 99285; C1874; G0480; J0696; J1250; J1650; J1815; J1940; J1953; J2310; J2370; J2543; J2597; J2930; J3430; J3475; J3480; J7030; J7040; J7042; J7050; J7070; J7120; P9016; P9045; P9047; S0028